=== PATIENT | female | born 1935 ===

== ENCOUNTER 2020-05-04 09:26 | Inpatient (IN) | payer OTHER ==
[~2020-05-04] VITALS: Ht 160 cm; Wt 80.3 kg
[2020-05-04] MEDS ORDERED: TEMAZEPAM30 MG (09:44)
[2020-05-04] MEDS ORDERED: HORIZANT300 MG (09:44)
--- NOTE | 2020-05-04 09:51 | NUR ---
SE RECIBE PACIENTE ALERTA Y ORIENTADA EN LAS MICHELLE ESFERAS. PACIENTE VIENE CON REFERIDO DE LA DRA. WH[place]MORE PARA EVALUACION MEDICA POR DOLOR Y MASA ABDOMINAL. SE JO S/V Y SE UBICA EN AREA DE OBSERVACION.
--- NOTE | 2020-05-04 09:59 | NUR ---
MR A ABREU ORIENTA A PACIENTE SOBRE ORDENES MEDICAS, COLECTA MUESTRAS DE LABORATORIO, CANALIZA VENA Y ADMINISTRA YEIMI ORDENADO. SE HACE ENTREGA DE CONTRASTE CON INSTRUCCIONES. PENDIENTE MUESTRA DE ORINA, TIENE ENVASE.
--- NOTE | 2020-05-04 15:47 | NUR ---
SE RECIBE PTE FEMENINA ALERTA Y ORIENTADA X3 DEL TURNO ANTERIOR, PTE CON BUEN PATRON RESPIRATORIO Y NO REFIERE DOLOR. VENOPUNCION PATENTE ROSELYN DE EDEMA Y ERITEMA RECIBIENDO TERAPIA DE IVFS 0.9NSS BAJANDO 150ML/HR. PTE EN ARIAS BAJA CON BARANDAS ELEVADAS Y FRENOS COLOCADOS POR SEGURIDAD. PENDIENTE CONSULTA CON DR.MUNOZ ROUSSEAU.
== END 2020-05-11 10:27 | disposition home or self-care (01) | DRG 376 ==
LOC: ER 09:26 → SURH 19:21
PROVIDERS: ADMIT Internal Medicine; ATTEND Internal Medicine
PROC: 0DBN8ZX Excision of Sigmoid Colon, Via Natural or Artificial Opening Endoscopic, Diagnostic (ICD-10-PCS; principal; 2020-05-06)
DX: C19 Malignant neoplasm of rectosigmoid junction (principal); Z53.09 Procedure and treatment not carried out because of other contraindication; N28.89 Other specified disorders of kidney and ureter; I10 Essential (primary) hypertension; Z20.822 Contact with and (suspected) exposure to COVID-19

== ENCOUNTER 2021-02-09 08:30 | Inpatient (IN) | payer OTHER ==
[~2021-02-09] VITALS: Ht 160 cm; Wt 77.1 kg
[~2021-02-09 08:30] MED LIST: HORIZANT300 MG; TEMAZEPAM30 MG
[2021-02-09] MEDS ORDERED: LOSARTAN-HCTZ1 EACH PO (12:18)
== END 2021-02-13 13:14 | disposition home or self-care (01) | DRG 737 ==
LOC: EDSTATUS 08:30 → SURG 02-11 08:02 → O/R 02-11 08:02 → SURH 02-11 08:30 → SURG 02-11 22:14 → SURH 02-11 23:50 → SURG 02-13 13:14
PROVIDERS: Obstetrics & Gynecology Gynecologic Oncology; ADMIT Surgery; ATTEND Surgery
PROC: 07BC0ZZ Excision of Pelvis Lymphatic, Open Approach (ICD-10-PCS; 2021-02-11)
PROC: 0UT70ZZ Resection of Bilateral Fallopian Tubes, Open Approach (ICD-10-PCS; 2021-02-11)
PROC: 0UT20ZZ Resection of Bilateral Ovaries, Open Approach (ICD-10-PCS; principal; 2021-02-11 23:50)
DX: C56.2 Malignant neoplasm of left ovary (principal); C78.5 Secondary malignant neoplasm of large intestine and rectum; I10 Essential (primary) hypertension; E78.00 Pure hypercholesterolemia, unspecified